=== PATIENT | male | born 1960 ===

== ENCOUNTER 2017-03-27 21:36 | Emergency (ER) | payer OTHER ==
[2017-03-27 22:29] VITALS: BP 135/77; PULSE 103; RESP 18; TEMP 100.1; O2SAT 99
--- NOTE | 2017-03-27 22:40 | ED PDOC ---
HPI: CCC, URI, Sore Throat Time Seen by Provider: 03/27/17 22:38 Chief Complaint (Nursing): ENT Problem Chief Complaint (Provider): ear pain History Per: Patient Additional Complaint(s): 56-year-old male presents to emergency department with right ear pain. He was seen earlier today by primary doctor and was diagnosed with otitis media and externa. He was given prescription for Augmentin and antibiotic eardrops. He presents to ED complaining of pain. Patient states he has not taken any meds for pain relief. He denies any fever or chills. Denies any hearing loss. Past Medical History Reviewed: Historical Data, Nursing Documentation, Vital Signs Vital Signs: Last Vital Signs Temp 100.1 F H 03/27/17 22:26 Pulse 103 H 03/27/17 22:26 Resp 18 03/27/17 22:26 BP 135/77 03/27/17 22:26 Pulse Ox 99 03/27/17 22:40 - Medical History PMH: Back Problems - Surgical History Surgical History: No Surg Hx - Family History Family History: States: No Known Family Hx - Living Arrangements Living Arrangements: With Family - Social History Current smoker - smoking cessation education provided: No Alcohol: None Drugs: Denies - Home Medications Home Medications: Ambulatory Orders Medication Instructions Recorded Tizanidine Hydrochloride 4 mg PO Q6 PRN #20 tab 06/18/15 [Tizanidine HCl] Tramadol Hydrochloride [Tramadol] 50 mg PO Q6H PRN #20 tab 06/18/15 Ibuprofen [Motrin] 600 mg PO Q6 PRN #15 tab 03/27/17 - Allergies Allergies/Adverse Reactions: Allergies Allergy/AdvReac Type Severity Reaction Status Date / Time No Known Allergies Allergy Verified 06/18/15 18:36 Review of Systems ROS Statement: Except As Marked, All Systems Reviewed And Found Negative Constitutional: Negative for: Fever, Chills ENT: Positive for: Ear Pain (right ear pain due to infection) Cardiovascular: Negative for: Chest Pain Respiratory: Negative for: Cough Gastrointestinal: Negative for: Nausea, Vomiting Neurological: Negative for: Headache, Dizziness Physical Exam - Reviewed Nursing Documentation Reviewed: Yes Vital Signs Reviewed: Yes - Physical Exam Appears: Positive for: Well, Non-toxic, No Acute Distress Skin: Positive for: Normal Color. Negative for: Rash Eye Exam: Positive for: Normal appearance, EOMI, PERRL ENT: Positive for: Other (Left ear wnl, right TM: erythema, bulging with obscured landmarks, canal is erythematous with no exudate) Cardiovascular/Chest: Positive for: Regular Rate, Rhythm Respiratory: Positive for: Normal Breath Sounds Neurologic/Psych: Positive for: Alert, Oriented, Gait (steady) - ECG O2 Sat by Pulse Oximetry: 99 Pulse Ox Interpretation: Normal Medical Decision Making Medical Decision Making: Impression: Right otitis media and externa Plan: PO motrin Pain is improved after motrin dose given in ED. Patient already has rx for augmentin and cortisporin otic. He was given rx motrin as well. ENT referral provided. Disposition - Clinical Impression Clinical Impression: Otitis media, Otitis externa - Patient ED Disposition Is Patient to be Admitted: No Counseled Patient/Family Regarding: Diagnosis, Need For Followup, Rx Given - Disposition Referrals: Candido Nunes MD [Staff Provider] - Disposition: Routine/Home Disposition Time: 23:09 Condition: STABLE Additional Instructions: Continue with current prescription meds. Take Motrin as directed as needed for pain. Follow-up with primary doctor or ear, nose and throat specialist in 2-3 days. Prescriptions: Ibuprofen [Motrin] 600 mg PO Q6 PRN #15 tab PRN Reason: Pain, Moderate (4-7) Instructions: Otitis Media (ED), Otitis Externa (ED)
== END 2017-03-27 23:26 | disposition home or self-care (01) ==
LOC: H.ER 21:36
DX: H66.91 Otitis media, unspecified, right ear (principal)

== ENCOUNTER 2017-03-29 12:53 | Emergency (ER) | payer OTHER ==
[2017-03-29 12:59] VITALS: BP 135/74; PULSE 112; RESP 18; TEMP 97.7; O2SAT 98
--- NOTE | 2017-03-29 13:36 | ED PDOC ---
HPI: CCC, URI, Sore Throat Time Seen by Provider: 03/29/17 12:55 Chief Complaint (Nursing): ENT Problem Chief Complaint (Provider): right ear pain History Per: Patient History/Exam Limitations: no limitations Onset/Duration Of Symptoms: Days Current Symptoms Are (Timing): Still Present Location Of Pain: Ear(s) (Right ear ) Associated Symptoms: denies: Fever, Chills, Sore Throat, Cough, Sputum, Myalgias Ear Symptoms: Right: Ear Pain Additional Complaint(s): Pt states he was seen by his PMD 3 days ago. PT was given augmentin 875/125 which he has taken 4 doses of, antibiotic ear drops and motrin for pain. Pt states it is not improving. Past Medical History Reviewed: Historical Data, Nursing Documentation, Vital Signs Vital Signs: Last Vital Signs Temp 97.7 F 03/29/17 12:57 Pulse 112 H 03/29/17 12:57 Resp 18 03/29/17 12:57 BP 135/74 03/29/17 12:57 Pulse Ox 98 03/29/17 13:48 - Medical History PMH: Back Problems, Pneumonia - Surgical History Surgical History: No Surg Hx - Family History Family History: States: Unknown Family Hx - Living Arrangements Living Arrangements: With Family - Social History Current smoker - smoking cessation education provided: No Alcohol: None Drugs: Denies - Home Medications Home Medications: Ambulatory Orders Medication Instructions Recorded Tizanidine Hydrochloride 4 mg PO Q6 PRN #20 tab 06/18/15 [Tizanidine HCl] Tramadol Hydrochloride [Tramadol] 50 mg PO Q6H PRN #20 tab 06/18/15 Ibuprofen [Motrin] 600 mg PO Q6 PRN #15 tab 03/27/17 - Allergies Allergies/Adverse Reactions: Allergies Allergy/AdvReac Type Severity Reaction Status Date / Time No Known Allergies Allergy Verified 03/29/17 12:56 Review of Systems ROS Statement: Except As Marked, All Systems Reviewed And Found Negative ENT: Positive for: Ear Pain Physical Exam - Reviewed Nursing Documentation Reviewed: Yes Vital Signs Reviewed: Yes - Physical Exam Appears: Positive for: Well, Non-toxic, No Acute Distress Head Exam: Positive for: ATRAUMATIC, NORMAL INSPECTION, NORMOCEPHALIC Skin: Positive for: Normal Color, Warm, DRY Eye Exam: Positive for: Normal appearance ENT: Positive for: TM Is/Are (Mild erythema without perforation ). Negative for : Normal ENT Inspection Neck: Positive for: Normal, Painless ROM Cardiovascular/Chest: Positive for: Regular Rate, Rhythm Respiratory: Positive for: CNT, Normal Breath Sounds Gastrointestinal/Abdominal: Positive for: Normal Exam, Bowel Sounds, Soft Back: Positive for: Normal Inspection Extremity: Positive for: Normal ROM Neurologic/Psych: Positive for: Alert, Oriented - ECG O2 Sat by Pulse Oximetry: 98 Medical Decision Making Medical Decision Making: Paper Rx given for Auralgan drops. Disposition - Clinical Impression Clinical Impression: Otitis media - Disposition Referrals: Candido Nunes MD [Staff Provider] - Disposition: Routine/Home Disposition Time: 13:19 Condition: STABLE Additional Instructions: Stop taking ibuprofen/motrin. Begin ear drops for pain control. Follow-up with ENT if pain persists. Instructions: Otitis Media (ED) Print Language: ENGLISH
== END 2017-03-29 14:36 | disposition home or self-care (01) ==
LOC: H.ER 12:53
DX: H66.91 Otitis media, unspecified, right ear (principal); J02.9 Acute pharyngitis, unspecified

== ENCOUNTER 2018-02-02 13:55 | Emergency (ER) | payer OTHER ==
[2018-02-02 14:12] VITALS: BP 129/83; PULSE 83; RESP 16; TEMP 98.6; O2SAT 96
--- NOTE | 2018-02-02 16:31 | ED PDOC ---
HPI: Back Time Seen by Provider: 02/02/18 15:18 Chief Complaint (Nursing): Back Pain Chief Complaint (Provider): Back Pain History Per: Patient, [employer]ator (#: [id number]) Onset/Duration Of Symptoms: Days Current Symptoms Are (Timing): Still Present Exacerbating Factor(s): Sitting, Other (laying in a supine position) Additional Complaint(s): Gregory Huston is a 57 year old male with a past medical history of back problems and pneumonia, who is presenting to the ER with complaints of back pain, onset 3 months ago. Patient reports pain at the waist and right flank that radiates towards the ribs, worsened when laying in a supine position. He reports that three days ago, the pain was exacerbated which prompted his ED visit. Patient also reports mild pain with deep breaths and worsened when sitting or sleeping. He offers no other medical complaints at this time. PMD: [facility] Past Medical History Reviewed: Historical Data, Nursing Documentation, Vital Signs Vital Signs: Last Vital Signs Temp 98.6 F 02/02/18 14:06 Pulse 83 02/02/18 14:06 Resp 16 02/02/18 14:06 BP 129/83 02/02/18 14:06 Pulse Ox 96 02/02/18 14:06 - Medical History PMH: Back Problems, Pneumonia - Surgical History Surgical History: No Surg Hx - Family History Family History: States: Unknown Family Hx - Home Medications Home Medications: Ambulatory Orders Medication Instructions Recorded Tizanidine Hydrochloride 4 mg PO Q6 PRN #20 tab 06/18/15 [Tizanidine HCl] Tramadol Hydrochloride [Tramadol] 50 mg PO Q6H PRN #20 tab 06/18/15 Ibuprofen [Motrin] 600 mg PO Q6 PRN #15 tab 03/27/17 Meloxicam [Mobic] 15 mg PO DAILY #30 tab 02/02/18 - Allergies Allergies/Adverse Reactions: Allergies Allergy/AdvReac Type Severity Reaction Status Date / Time No Known Allergies Allergy Verified 03/29/17 12:56 Review of Systems ROS Statement: Except As Marked, All Systems Reviewed And Found Negative Musculoskeletal: Positive for: Back Pain (radiating to rib) Physical Exam - Reviewed Nursing Documentation Reviewed: Yes Vital Signs Reviewed: Yes - Physical Exam Appears: Positive for: Non-toxic, No Acute Distress Head Exam: Positive for: ATRAUMATIC, NORMAL INSPECTION, NORMOCEPHALIC Skin: Positive for: Normal Color Neck: Positive for: Normal, Painless ROM Cardiovascular/Chest: Positive for: Regular Rate, Rhythm. Negative for: Murmur Respiratory: Positive for: Normal Breath Sounds. Negative for: Respiratory Distress Gastrointestinal/Abdominal: Positive for: Normal Exam, Soft. Negative for: Tenderness, Guarding, Rebound Back: Positive for: Other (reproducible tenderness to palpation to right flank) . Negative for: L CVA Tenderness, R CVA Tenderness, Vertebral Tenderness Extremity: Positive for: Normal ROM. Negative for: Deformity, Swelling Neurologic/Psych: Positive for: Alert, Oriented. Negative for: Motor/Sensory Deficits - ECG O2 Sat by Pulse Oximetry: 96 (RA) Pulse Ox Interpretation: Normal Medical Decision Making Medical Decision Making: Time: 16:31 Plan: --Toradol 60 mg IM --X-Ray Spine Spine X-Ray: FINDINGS: Thoracic spine: Stable multilevel degenerative changes primarily disc space narrowing and non marginal osteophyte formation. No prevertebral or paravertebral abnormalities. Lumbar spine: No appreciable degenerative change. Preserved intervertebral disc spaces and vertebral body heights. IMPRESSION: No acute findings related to/accounting for the clinical presentation. Scribe Attestation: Documented by Paloma De La O, acting as a scribe for Ulysses Lantigua PA-C Provider Scribe Attestation: All medical record entries made by the Scribe were at my direction and personally dictated by me. I have reviewed the chart and agree that the record accurately reflects my personal performance of the history, physical exam, medical decision making, and the department course for this patient. I have also personally directed, reviewed, and agree with the discharge instructions and disposition. Disposition - Clinical Impression Clinical Impression: Back strain, Back pain, Low back pain Counseled Patient/Family Regarding: Diagnosis, Need For Followup, Rx Given - Disposition Referrals: [facility] [Outside] [facility] [Outside] Disposition: Routine/Home Disposition Time: 17:59 Condition: GOOD Prescriptions: Meloxicam [Mobic] 15 mg PO DAILY #30 tab Instructions: Back Exercises, Chronic Pain, Chronic Pain (DC) Forms: [employer] ([place] Islander) Print Language: CAMEROONIAN
--- NOTE | 2018-02-02 17:41 | RAD ---
PROCEDURE: Spine series complete HISTORY: Pain. No history of recent/ related trauma provided COMPARISON: 06/18/2015 thoracic spine TECHNIQUE: Standard protocol for this study/examination. FINDINGS: Thoracic spine: Stable multilevel degenerative changes primarily disc space narrowing and non marginal osteophyte formation. No prevertebral or paravertebral abnormalities. Lumbar spine: No appreciable degenerative change. Preserved intervertebral disc spaces and vertebral body heights. IMPRESSION: No acute findings related to/accounting for the clinical presentation.
== END 2018-02-02 18:30 | disposition home or self-care (01) ==
LOC: H.ER 13:55
DX: S39.012A Strain of muscle, fascia and tendon of lower back, initial encounter (principal); M54.5 Low back pain
CPT/HCPCS: 72082; 96372; 99282; J1885